=== PATIENT | female | born 1980 | race Caucasian/White ===

== ENCOUNTER 2019-02-26 14:34 | Emergency (ER) | payer OTHER ==
[~2019-02-26] VITALS: Ht 162.6 cm; Wt 59.0 kg
[~2019-02-26 14:34] MED LIST: ALEVE220 MG PO; CLONAZEPAM 1 MG1 M1 PO; LEXAPRO 10 MG T10 M1 PO; NOHOMEMEDICATIONS; XANAX 0.5 MG0.5 M1 PO
[2019-02-26] MEDS ORDERED: WELLBUTRIN SR150 MG PO (14:45)
[2019-02-26 16:23] LABS: URINE BILIRUBIN NEGATIVE (Negative); URINE BLOOD NEGATIVE (Negative); URINE CLARITY CLEAR; URINE COLOR YELLOW; URINE GLUCOSE-RANDOM NEGATIVE (Negative); URINE KETONES NEGATIVE (Negative); URINE LEUKOCYTES-REFLEX NEGATIVE (Negative); URINE NITRITE-REFLEX NEGATIVE (Negative); URINE PROTEIN NEGATIVE (Negative); URINE UROBILINOGEN 0.2 E.U./dl (0.2-1.0)
[2019-02-26 16:29] LABS: AMP/METHAMP Negative (Negative); BARBITURATES Negative (Negative); BENZODIAZEPINES Negative (Negative); COCAINE Negative (Negative); METHADONE Negative (Negative); OPIATES Negative (Negative); PCP Negative (Negative); THC Negative (Negative)
[2019-02-26 16:38] LABS: ABSOLUTE BASOPHILS 0.1 thou/uL (0.0-0.2); ABSOLUTE EOSINOPHILS 0.1 thou/uL (0.0-0.7); ABSOLUTE MONOCYTES 0.5 thou/uL (0.0-1.2); ABSOLUTE NEUTROPHILS 7.2 thou/uL (1.6-8.1); BASOPHILS 0.9 %; EOSINOPHILS 1.3 %; HEMOGLOBIN 14.3 gm/dL (12.0-15.0); LYMPHOCYTES 20.1 %; MCV 88.1 fL (80.0-100.0); MONOCYTES 5.4 %; MPV 9.4 fl. (7.2-11.1); NUCLEATED RBCS 0 /100WBC; PLATELET COUNT* 219 thou/uL (150-400); POLYS 72.3 %; RBC 4.76 mil/uL (4.20-5.00); RDW-CV 12.9 % (10.5-14.5); WBC 9.9 thou/uL (4.0-11.0)
[2019-02-26 16:46] LABS: CALCIUM 8.6 mg/dL (8.5-10.1); CREATININE 0.9 mg/dL (0.6-1.3); POTASSIUM 4.1 mmol/L (3.5-5.1)
[2019-02-26 16:51] LABS: TOTAL BILIRUBIN 0.3 mg/dL (<0.1-1.0); TOTAL PROTEIN 6.9 g/dL (6.4-8.2)
[2019-02-26 16:56] LABS: SALICYLATE 5.5 mg/dL (2.8-20.0)
[2019-02-26 16:57] LABS: ACETAMINOPHEN < 2 ug/mL (10-30)
[2019-02-26] MEDS ORDERED: AMITRIPTYLINE H75 M1 PO (18:01)
[2019-02-26 18:20] VITALS: BP 108/59
--- NOTE | 2019-02-27 17:06 | EKG ---
[place] [address] ELECTROCARDIOGRAM REPORT Name: AMBIKASCOTT D Room: [facility]#: [id number] Admission: 02/26/19 Attend Phys: Discharge: 02/26/19 Date of : 78 Report #: [id number] THIS REPORT FOR: //name// [facility] ED Test Date: 2019-02-26 Test Time: 15:02:05 Pat Name: SCOTT APPLE Department: Room: Gender: F Web Developer: [facility] : 1980 Requested By: Luanne Centeno Order Number: [id number] MD: Sidney Shah Measurements Intervals [place] Rate: 92 P: 78 MA: 139 QRS: 71 QRSD: 92 T: 51 QT: 370 QTc: 458 Interpretive Statements Sinus rhythm Compared to ECG 04/06/2009 18:39:22 No significant changes Electronically Signed On 02-27-2019 17:06:23 [employer] by Sidney Shah [email or web address] <ELECTRONICALLY SIGNED> By: Sidney Shah MD, [facility] 02/27/19 1706 1502 1502 Sidney Shah MD, FACC /EPI
== END 2019-02-26 18:20 | disposition home or self-care (01) ==
LOC: M.ERS 14:34
PROVIDERS: Personal Emergency Response Attendant
DX: F41.9 Anxiety disorder, unspecified (principal); F17.210 Nicotine dependence, cigarettes, uncomplicated; Z79.899 Other long term (current) drug therapy